=== PATIENT | male | born 1980 | race Caucasian/White ===

== ENCOUNTER 2022-02-22 15:33 | Emergency (ER) | payer OTHER ==
[2022-02-22] MEDS ORDERED: BACITRACIN ZINC OINT 1 PACKET TOP STA (17:24)
[2022-02-22] MEDS ORDERED: CLINDAMYCIN 150 MG CAPSULE PO STA (17:45)
--- NOTE | 2022-02-22 17:50 | ED Physician Documentation ---
PD HPI UPPER EXT INJURY - Stated complaint Stated Complaint: RIGHT FINGER LAC - Chief complaint Chief Complaint: Trauma Ext - History obtained from History obtained from: Patient - Additonal information Additional information: Pt comes to the ED for CC of laceration to R index fingertip with a sawsall this afternoon. No other injuries or complaints. Review of Systems Ten Systems: 10 systems reviewed and negative Constitutional: reports: Reviewed and negative Eyes: reports: Reviewed and negative Ears: reports: Reviewed and negative Nose: reports: Reviewed and negative Throat: reports: Reviewed and negative Cardiac: reports: Reviewed and negative Respiratory: reports: Reviewed and negative GI: reports: Reviewed and negative : reports: Reviewed and negative Skin: reports: Laceration (s) Musculoskeletal: reports: Reviewed and negative Neurologic: reports: Reviewed and negative Psychiatric: reports: Reviewed and negative Endocrine: reports: Reviewed and negative Immunocompromised: reports: Reviewed and negative PD PAST MEDICAL HISTORY - Past Medical History Past Medical History: Yes Cardiovascular: None Respiratory: None Neuro: None Endocrine/Autoimmune: None GI: None : None HEENT: None Psych: None Musculoskeletal: None Derm: None - Past Surgical History Past Surgical History: Yes Ortho: Arthroscopic surgery, Other - Present Medications Home Medications: Ambulatory Orders Medication Instructions Recorded Confirmed clindamycin HCL [Clindamycin HCl] 300 mg PO TID #21 cap 02/22/22 - Allergies Allergies/Adverse Reactions: Allergies Allergy/AdvReac Type Severity Reaction Status Date / Time No Known Drug Allergies Allergy Verified 02/22/22 15:40 - Social History Does the pt smoke?: No Smoking Status: Never smoker Does the pt drink ETOH?: No Does the pt have substance abuse?: No - Immunizations Immunizations are current?: Yes PD ED PE NORMAL - Vitals Vital signs reviewed: Yes - General General: Alert and oriented X 3, No acute distress, Well developed/nourished - HEENT HEENT: Atraumatic, PERRL, EOMI, Moist mucous membranes - Neck Neck: Supple, no meningeal sign - Cardiac Cardiac: Strong equal pulses - Respiratory Respiratory: No respiratory distress - Derm Derm: Warm and dry, Other (3cm laceration extending from index mid-finger pad, across nail, with complete laceration of nail with small avulsion of nail.) - Extremities Extremities: No deformity, Other (flexion intact at DIP joint index finger) - Neuro Neuro: Alert and oriented X 3 - Psych Psych: Normal mood, Normal affect Results - Vitals Vitals: Oxygen O2 Source Room air - Rads (name of study) R finger XR Radiology: Final report received, EMP read indepedently, See rad report (comminuted tuft fx R index finger) Procedures - General procedure General procedure: The pt had completely lacerated his nail across the base, with a small avulsion along the initial 5 mm of the nail lac. I d/w pt that the nail would need to be removed. Digital block was performed, and nail was removed, prior to lac repair. We have discussed wound care at home, as well as the timeline for suture removal and the usual indications for return. - Laceration (location) R index finger Length in cm: 2 Wound type: Linear, Into subcut fat, Clean Neurovascular status: Sensory intact, Motor intact, Vascular intact Anesthesia: Lidocaine 1% Wound preparation: Hibiclens, Irrigated copiously NS, Wound explored, To the base Skin layer closure: Nylon, Interrupted, Size #-0 - enter number (5.0), Sutures - enter # (6) Other: Patient tolerated well, No complications, Neurovascular intact, Dressing applied, Tetanus UTD - Regional nerve block Nerve block site: Digital - note digit(s) (R index) Right / left: Right Nerve block anesthesia: Lidocaine 1% Nerve block aftercare: Excellent anesthesia, Patient tolerated well, No complications Departure - Departure Disposition: 01 Home, Self Care Clinical Impression: Open fracture of tuft of distal phalanx of finger Finger laceration Qualifiers: Encounter type: initial encounter Finger: index finger Damage to nail status: with damage Foreign body presence: without foreign body Laterality: right Qualified Code(s): S61.310A - Laceration without foreign body of right index finger with damage to nail, initial encounter Injury of nail bed of finger Qualifiers: Encounter type: initial encounter Laterality: right Qualified Code(s): S69.91XA - Unspecified injury of right wrist, hand and finger(s), initial encounter Condition: Stable Instructions: ED Fx Finger Open, ED Laceration Hand, ED Removal Nail Prescriptions: clindamycin HCL [Clindamycin HCl] 300 mg PO TID #21 cap Comments: Your x-ray shows that the Bone at your fingertip has been broken. The pieces are fairly well aligned and should heal well, but because you have a wound over the fracture, you will need to be on antibiotics. You have been given the first dose here in the emergency department. Please take the antibiotics every day, as directed, until the course is complete. You should have your wound checked in 7 days and sutures removed. Please do not perform any rough or dirty work with the finger, as this will increase your risk of infection and poor healing. Additionally, you should keep the wound generally clean and dry. You may let water and soap run over it, but please do not rub, scrub, or immerse the wound. This is to avoid development of infection. You will need to wear the splint for approximately the next 4 weeks, then follow-up with your doctor for repeat x-ray to be sure the fingertip is healed. If you develop redness and swelling spreading progressively away from the wound, please have it rechecked immediately. As far as your nail, your nail was completely severed from its base and the severed portion was removed today. It will take a couple of months for your nail to grow back completely. Discharge Date/Time: 02/22/22 18:38
--- NOTE | 2022-02-22 17:59 | XRAY Report ---
PROCEDURE: Finger(s) RT INDICATIONS: injury to R index TECHNIQUE: AP hand, 2 views of the second finger(s) acquired. COMPARISON: None. FINDINGS: Bones: There is a comminuted transverse fracture involving the shaft of the second distal phalanx. T here is a osteochondroma or large bone spur in the second middle phalanx. No suspicious bony lesions. Soft tissues: No suspicious soft tissue calcifications. IMPRESSION: Comminuted second distal phalangeal tuft fracture. Reviewed by: Ginny Faulkner MD on 02/22/2022 5:57 PM PDT Approved by: Ginny Faulkner MD on 02/22/2022 5:57 PM PDT Station ID: [id number]
[2022-02-22 18:15] VITALS: BP 131/83
== END 2022-02-22 18:38 | disposition home or self-care (01) ==
LOC: ED 15:33
DX: S62.630B Displaced fracture of distal phalanx of right index finger, initial encounter for open fracture (principal); W29.8XXA Contact with other powered hand tools and household machinery, initial encounter
CPT/HCPCS: 11730; 12041; 73140; 99283; A9270